=== PATIENT | female | born 1975 | race American Indian/Alaskan Native ===

== ENCOUNTER 2021-06-11 09:42 | Outpatient (CLI) | payer OTHER ==
--- NOTE | 2021-06-11 10:41 | Mammography Report ---
DIGITAL DIAGNOSTIC MAMMOGRAM WITH CAD , 06/11/2021 CLINICAL INFORMATION / INDICATION: Patient reports no problems. However, on the prior mammogram of , she was asked to return for bilateral spot compression views. This is her first mammogram si nce being asked to return in 2019. TECHNIQUE: Digital bilateral mammographic imaging was performed. This examination was interpreted with the benefit of Computer-aided Detection analysis. COMPARISON: 04/28/2018, 11/07/2019, 05/09/2015 prior mammograms. FINDINGS: Breast Density: The breasts are heterogeneously dense, which may obscure small masses. No dominant mass, suspicious calcifications or architectural distortion in either breast. Stable roosevelt gn mass with associated coarse calcification is again noted in the far posterior medial right breast unchanged from several older mammograms. Benign calcifications are present in the lower inner quadrant of the right breast. Overall, no interv al change from prior mammograms. The bilateral focal asymmetries described on the 11/07/2019 mammogram are less prominent and benign. IMPRESSION: No mammographic evidence of malignancy. Follow up recommendation: Routine yearly BI-RADS Category 2: BENIGN. A "normal" or negative report should not discourage follow up or biopsy of a clinically significant f inding. A written summary of these findings will be mailed to the patient. The patient will be entered into a mammography reporting system which will generate a reminder letter for the patient's next appointmen t at the appropriate interval. According to the [employer], yearly mammograms are recommended starting at age 40 and continuing as long as a woman is in good health. Breast MRI is recommended for women with an lay roximately 20-25% or greater lifetime risk of breast cancer, including women with a strong family his tory of breast or ovarian cancer and women who have been treated for Hodgkin's disease. Signer Name: Liza Sommer MD Signed: 06/11/2021 10:37 AM Workstation Name: [id number]
== END 2021-06-11 09:43 | disposition home or self-care (01) ==
LOC: MAMMO 09:42
PROVIDERS: ATTEND Surgery
DX: R92.1 Mammographic calcification found on diagnostic imaging of breast (principal)
CPT/HCPCS: 77066